=== PATIENT | male | born 1950 | race Two or more races ===

== ENCOUNTER → 2017-12-21 | Outpatient (CLI) | payer OTHER, MEDICAID | END | disposition home or self-care (01) | LOC: Rad HDHVI 08:01 | PROVIDERS: ATTEND Internal Medicine | DX: I51.7 Cardiomegaly (principal); I42.9 Cardiomyopathy, unspecified; I50.9 Heart failure, unspecified | CPT/HCPCS: 93306 ==

== ENCOUNTER → 2018-08-17 | Outpatient (CLI) | payer OTHER, MEDICAID | END | disposition home or self-care (01) | LOC: Rad HDHVI 09:54 | PROVIDERS: ATTEND Internal Medicine | DX: I08.1 Rheumatic disorders of both mitral and tricuspid valves (principal); I11.0 Hypertensive heart disease with heart failure; I50.9 Heart failure, unspecified; J42 Unspecified chronic bronchitis | CPT/HCPCS: 93306 ==

== ENCOUNTER → 2018-12-03 | Outpatient (CLI) | payer OTHER, MEDICAID | END | disposition home or self-care (01) | LOC: Rad HDHVI 13:05 | PROVIDERS: ATTEND Internal Medicine | DX: I08.1 Rheumatic disorders of both mitral and tricuspid valves (principal); I42.9 Cardiomyopathy, unspecified; R94.30 Abnormal result of cardiovascular function study, unspecified; I50.9 Heart failure, unspecified | CPT/HCPCS: 93306 ==

== ENCOUNTER → 2019-08-03 | Outpatient (CLI) | payer OTHER, MEDICAID ==
[~2019-08-03] VITALS: Ht 175.3 cm; Wt 73.0 kg
[~2019-08-03] MED LIST: ADENOSINE 61 MG in GIVE UN-DILUTED 0 ML IV ONE; ADENOSINE 90 MG/30 ML INJ IV ONE
== END | disposition home or self-care (01) ==
LOC: Rad HDHVI 08:36
PROVIDERS: ATTEND Internal Medicine
DX: Z01.810 Encounter for preprocedural cardiovascular examination (principal); I10 Essential (primary) hypertension; E78.00 Pure hypercholesterolemia, unspecified
CPT/HCPCS: 78452; 93005; 96374; 96375; A9500; J0153

== ENCOUNTER 2019-09-29 06:48 | Inpatient (IN) | payer OTHER, MEDICAID ==
[2019-09-27 12:31] LABS: Basophils # (auto) 0.1 10 ^3/uL (0-0.2); Basophils % (auto) 1.3 % (0.0-2.0); Eosinophils # (auto) 0.1 10 ^3/uL (0-0.8); Eosinophils % (auto) 1.9 % (0.0-7.0); Hematocrit 48.3 % (41.0-53.0); Lymphocytes # (auto) 1.4 10 ^3/uL (0.4-5.4); Lymphocytes % (auto) 31.5 % (10.0-50.0); Mean Corpuscular Hemoglobin 30.6 pg (28.0-32.0); Mean Corpuscular Hgb Conc. 33.1 g/dL (32.0-36.0); Mean Corpuscular Volume 92.3 fL (80.0-100.0); Monocytes # (auto) 0.3 10 ^3/uL (0-1.3); Monocytes % (auto) 7.4 % (0.0-12.0); Neutrophils # (auto) 2.6 10 ^3/uL (1.6-8.6); Neutrophils % (auto) 57.9 % (37.0-80.0); Nucleated Red Blood Cells % 0.1 %; Platelet Count (auto) 174 10^3/uL (140-450); Red Blood Cells 5.23 10^6/uL (4.5-5.90); Red Cell Distribution Width 14.4 % (11.8-14.3); White Blood Cell 4.5 10^3/uL (4.4-10.8)
[2019-09-27 12:32] LABS: Urine Bacteria NONE SEEN /hpf (None Seen); Urine Blood 1+ /uL (Negative); Urine Mucus FEW (None Seen); Urine Specific Gravity 1.025 (1.001-1.035); Urine WBC 2 /hpf (0 - 3)
[2019-09-27 12:47] LABS: INR 1.01 (0.9-1.15); Partial Thromboplastin Time 24.7 sec (23.64-32.05)
[2019-09-27 13:30] LABS: Albumin 4.1 g/dL (3.4-5.0); Calcium 8.8 mg/dL (8.5-10.1); Potassium 3.8 mmol/L (3.5-5.1)
[2019-09-27 13:32] LABS: BUN/Creatinine Ratio 13.9
[2019-09-27 13:35] LABS: Total Protein 7.7 g/dL (6.4-8.2)
[~2019-09-29] VITALS: Ht 175.3 cm; Wt 78.5 kg
[~2019-09-29 06:48] MED LIST changes: -ADENOSINE 61 MG in GIVE UN-DILUTED 0 ML IV ONE; -ADENOSINE 90 MG/30 ML INJ IV ONE; +FINA5TAB4 PO; +SACU1TAB7 PO; +TAMS0.4C36 PO
[2019-09-29] MEDS ORDERED: CIPROFLOXACIN 400MG/200ML 200 ML IV ONE (07:44)
[2019-09-29] MEDS ORDERED: MIDAZOLAM HCL 1MG/1ML-2 ML VIAL ONE (08:06)
[2019-09-29] MEDS ORDERED: SODIUM CHLORIDE LOCK 10 ML ONE (08:06)
[2019-09-29] MEDS ORDERED: ROCURONIUM 10MG/ML 10ML VIAL IV ONE (08:06)
[2019-09-29] MEDS ORDERED: ONDANSETRON HCL 4 MG/2 ML VIAL ONE (08:06)
[2019-09-29] MEDS ORDERED: PROPOFOL 10 MG/ML 20 ML IV ONE (08:06)
[2019-09-29] MEDS ORDERED: fentaNYL CITRATE 100 MCG/2 ML VL ONE (08:06)
[2019-09-29] MEDS ORDERED: MEPERIDINE HCL (25 MG/ML) 1ML VIAL ONE ×2 (08:06→10:35)
[2019-09-29] MEDS ORDERED: HYDROmorphone HCL 2 MG/ML VL IV PRN (08:45)
[2019-09-29] MEDS ORDERED: ACCU-CHEK COMFORT CURVE STRIP VI ONE (08:45)
[2019-09-29] MEDS ORDERED: MORPHINE SULFATE 4 MG/ML SYR/VIAL IV PRN (08:45)
[2019-09-29] MEDS ORDERED: METOCLOPRAMIDE HCL 5MG/ml INJ 2ml VIAL IV PRN (08:45)
[2019-09-29] MEDS ORDERED: TETRACAINE 1% INJ 2 ML VIAL IJ ONE (08:55)
[2019-09-29] MEDS ORDERED: EPINEPHrine HCL 1 MG/1 ML AMP ONE (08:57)
[2019-09-29] MEDS ORDERED: METHYLENE BLUE 0.5% 5MG/ML 10ml AMP IV ONE (10:56)
[2019-09-29] MEDS ORDERED: DOXAPRAM HCL 20 MG/ML 20ML VIAL INJ IV ONE (11:55)
[2019-09-29] MEDS ORDERED: NITROGLYCERIN 0.4 MG SL TAB SL PRN (12:15)
[2019-09-29] MEDS ORDERED: MORPHINE SULF INJ 2 MG/ML SYRINGE 1ML IV PRN (12:15)
[2019-09-29 17:48] VITALS: BP 147/88
[2019-09-29 22:00] VITALS: BP 136/86
[2019-09-30 05:00] VITALS: BP 140/88
--- NOTE | 2019-09-30 07:20 | NUR ---
closing note pt resting in semi fowlers position, watching tv. pt denies pain or discomfort. respirations even and nonlabored on 2Lnc. endorsed care to JAVY Milton. bed in low locked position call light within reach.
[2019-09-30 08:55] VITALS: BP 148/91
[2019-09-30] MEDS ORDERED: BELLADONNA ALKAL/OPIUM (16.2/30MG) RECT SUPP PR SCH (10:00)
[2019-09-30 13:00] VITALS: BP 145/84
--- NOTE | 2019-09-30 15:20 | NUR ---
RECEIVED REPORT FROM JAVY CALHOUN.
[2019-09-30] MEDS ORDERED: OMEG100078 PO (16:30)
[2019-09-30 16:48] VITALS: BP 137/83
--- NOTE | 2019-09-30 17:24 | NUR ---
PT SEEN BY YUDELKA CHUA, SHE SAID SHE WILL PUT THE DISCHARGE ORDER, PT CAN GO HOME AND WILL FOLLOW UP WITH UROLOGY OFFICE IN [facility] IN 1 WEEK FOR REMOVAL OF CATHETER AND ANOTHER FOLLOW UP IN 2 WEEKS. PER [facility] OFFICE WILL CALL PT FOR HIS APPOINTMENT. PT VERBALIZED UNDERSTANDING.
[2019-09-30 17:41] VITALS: BP 137/83
--- NOTE | 2019-09-30 18:13 | NUR ---
CALLED [facility] TO [employer] OFFICER THE PT, NO ANSWER, LEFT A MESSAGE TO CALL BACK.
--- NOTE | 2019-09-30 18:45 | NUR ---
LEDEZMA CATHETER CONVERTED TO LEG BAG, PT EDUCATED ON HOW TO TAKE CARE OF HIS LEDEZMA CATHETER AND WHEN TO DRAIN HIS BAG AND HOW TO DRAIN IT, PT ABLE TO DEMONSTRATE HOW TO EMPTY HIS URINE.
--- NOTE | 2019-09-30 19:15 | NUR ---
Discharge instructions given as ordered. Encourage to follow up with DR. Armando XIAO IN 1 WEEK FOR REMOVAL OF 3 WAY LEDEZMA CATHETER, OFFICE TO CALL THE PT FOR HIS APPOINTMENT. All questions and concerns addressed. Patient verbalized understanding. Medication reconciliation form completed and copy given to patient. IV removed with catheter intact, pressure dressing applied. Telemetry unit returned to ICU. Patient taken to vehicle via wheelchair with all personal belongings, accompanied by staff and family member. No distress noted at time of departure.
== END 2019-09-30 19:15 | disposition home or self-care (01) | DRG 714 ==
LOC: SUR 06:48 → TELE-CENTR 15:20
PROVIDERS: ADMIT Urology; ATTEND Urology
PROC: 0V508ZZ Destruction of Prostate, Via Natural or Artificial Opening Endoscopic (ICD-10-PCS; principal; 2019-09-29 08:58)
DX: N40.1 Benign prostatic hyperplasia with lower urinary tract symptoms (principal); R33.8 Other retention of urine; Z11.59 Encounter for screening for other viral diseases
CPT/HCPCS: 36415; 80053; 81001; 82962; 85025; 85610; 85730; G0378; J0171; J2250; J2405; J2704

== ENCOUNTER → 2020-02-08 | Outpatient (CLI) | payer OTHER, MEDICAID ==
[~2020-02-08] MED LIST changes: +OMEG100078 PO
== END | disposition home or self-care (01) ==
LOC: Rad HDHVI 11:17
PROVIDERS: ATTEND Internal Medicine Cardiovascular Disease
DX: I11.0 Hypertensive heart disease with heart failure (principal); I50.20 Unspecified systolic (congestive) heart failure
CPT/HCPCS: 93306

== ENCOUNTER → 2020-02-16 | Outpatient (CLI) | payer OTHER, MEDICAID | END | disposition home or self-care (01) | LOC: RT 08:53 | PROVIDERS: ATTEND Internal Medicine | DX: J44.9 Chronic obstructive pulmonary disease, unspecified (principal) | CPT/HCPCS: 94060; 94727; 94729 ==